=== PATIENT | female | born 1965 | race Caucasian/White ===

== ENCOUNTER 2024-04-13 15:54 | Emergency (ER) | payer BC ==
[~2024-04-13] VITALS: Ht 154.9 cm; Wt 52.2 kg
[2024-04-13 15:54] VITALS: BP 153/99; TEMP 98.8
[2024-04-13] MEDS: IBUPROFEN 600 MG TABLET PO ONE (16:34)
[2024-04-13] MEDS ORDERED: IBUP-1953 PO (17:44)
[2024-04-13 18:01] VITALS: O2SAT 100
== END 2024-04-13 17:55 | disposition home or self-care (01) ==
LOC: ER 16:00
DX: S30.0XXA Contusion of lower back and pelvis, initial encounter (principal); Z88.6 Allergy status to analgesic agent; W01.0XXA Fall on same level from slipping, tripping and stumbling without subsequent striking against object, initial encounter; Y93.89 Activity, other specified; Y92.89 Other specified places as the place of occurrence of the external cause; Y99.8 Other external cause status
CPT/HCPCS: 72192-TC